=== PATIENT | female | born 1985 | race Caucasian/White ===

== ENCOUNTER 2020-10-15 08:17 | Emergency (ER) | payer SELFPAY ==
--- NOTE | 2020-10-15 08:21 | ED.GENADULT ---
HPI - General Adult General Chief complaint: Ear Stated complaint: Jaw/ear pain Time Seen by Provider: 10/15/20 08:20 History of Present Illness HPI narrative: 35-year-old woman presents with severe right ear pain. She states that she rarely sees physicians but does report that at 19 she had a ?panic attack induced heart attack. She states the severe right ear pain has been present intermittently for the last 2 years. She was last seen and evaluated by physicians over 6 months ago and says that she did see [facility] N[facility] Throat physicians she has been on multiple antibiotics and antiviral medications none of which have made a difference for her. She is currently using your cancelling as well as peroxide to rinse out her ear. She reports no fevers, cough, chills, abdominal pain. She does not have any specific headaches but notes over the last month she has been having visual changes all of which seem to be involving her right eye she describes this as being overall decreased acuity, decreased intensity of light and seems to have a mild right-sided peripheral field deficit. She has a dramatic affect of response and is hyperventilating due to the pain. 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 With this pain she does not describe other significant neurologic findings. She does not feel that there is any hearing loss, she is not experiencing tinnitus there has been no increased dizziness, vertigo, near syncopal episodes or numbness weekly weakness in extremities. She describes no TMJ type pain and no acute dental issues. Related Data Previous Rx's Medication Instructions Recorded carbamazepine 200 mg tablet 200 mg PO .HS #30 tab 10/15/20 Allergies Allergy/AdvReac Type Severity Reaction Status Date / Time Sulfa (Sulfonamide Allergy Verified 10/15/20 08:26 Antibiotics) Review of Systems Review of Systems Narrative: Remainder of complete review of systems is otherwise unremarkable except for that included in the HPI. Patient History Medical History (Updated 10/15/20 @ 12:06 by Merced Ontiveros MD) Myocardial infarct Renal insufficiency Social History Smoking Status: Current every day smoker Exam Narrative Exam Narrative: General: Disheveled, dramatic affect of behavior, difficulty in fully cooperating with exam due to pain behaviors HEENT: Moist mucous membranes, normal sclera with reactive pupils, left tympanic membrane and ear canal is unremarkable. Right the tympanic membrane has some mild opacification inferiorly but the canal itself looks normal. No bulging or redness to suggest infection Neck: No JVD, supple. There is a fullness just in front of the right mastoid and inferior to the TMJ. No pain or tenderness with full range of motion of the TMJ. No cervical adenopathy. No nuchal rigidity Respiratory: Lungs are clear to auscultation, no wheezing no rales no rhonchi. Full and symmetrical air movement Cardiac: Regular rate and rhythm no murmurs with careful auscultation, no bruits Abdomen: Soft, nontender, good bowel tones, no flank pain Skin: Warm and dry, no rashes and no facial skin or scalp abnormalities Neurologic: Reported decreased ?intensity? in vision and color sensation with the right eye only with decreased peripheral vision right eye only Extremities: No trauma, hyperemic hands consistent with prior IV drug use Psych: Cooperative, anxious, hurting Initial Vital Signs Initial Vital Signs: Vital Signs Temperature 97.9 F 10/15/20 08:27 Pulse Rate 117 H 10/15/20 08:27 Respiratory Rate 22 10/15/20 08:27 Blood Pressure 121/76 10/15/20 08:27 Pulse Oximetry 100 10/15/20 08:27 Course Orders Ordered: ED Orders 10/15/20 09:14 Complete Blood Count AUTO DIFF Stat Comprehensive Metabolic Panel Stat 10/15/20 09:21 MR head/brain wo/w con Stat 10/15/20 09:22 MR angio head wo con Stat Discontinued Medications Carbamazepine (Carbamazepine 200 Mg Tablet) 200 mg PO NOW ONE Stop: 10/15/20 08:54 Last Admin: 10/15/20 09:20 Dose: 200 mg Documented by: YAEL Diazepam (Diazepam 10 Mg/2 Ml Syringe) 5 mg IV NOW ONE Stop: 10/15/20 08:55 Last Admin: 10/15/20 09:19 Dose: 5 mg Documented by: YAEL Ketorolac Tromethamine (Ketorolac 30 Mg/Ml Vial) 15 mg IV NOW ONE Stop: 10/15/20 08:37 Last Admin: 10/15/20 09:18 Dose: 15 mg Documented by: YAEL Vital Signs Vital signs: Vital Signs - 8 hr 10/15/20 08:27 10/15/20 10:56 10/15/20 11:00 Temperature 97.9 F Pulse Rate 117 H 89 86 Respiratory Rate 22 14 Blood Pressure 121/76 102/55 L 106/61 Pulse Oximetry 100 100 100 10/15/20 11:30 Temperature Pulse Rate 77 Respiratory Rate Blood Pressure 95/52 L Pulse Oximetry 100 Medical Decision Making Medical Records Medical records narrative: 35-year-old woman presents with 2 years of intermittent severe stabbing right your pain. Presents today and extremities secondary to the pain and inability to sleep. It sounds like she has had some outpatient workup but has not had any imaging done. She has used ibuprofen Tylenol Naprosyn all with minimal effect. She does have history of IV drug use states her last heroin was well over a week ago and declines to answer regarding the methamphetamine use. Given the extensive time and description of her pain with the slight visual changes and the minor abnormality appreciated just anterior to the mastoid possibility of tumor, mass, infection are all entertained. Possibility of nervous intermedius neuralgia is also entertained. Labs, Toradol for pain control Valium for sedation and MRI of the brain with MRA of the brain are ordered at this time. Lab Data Result diagrams: 10/15/20 09:14 10/15/20 09:14 Labs: Lab Results 10/15/20 Range/Units 09:14 WBC 9.2 (4.5-11.0) X10^3/uL RBC 4.39 (4.0-5.2) X10^6/uL Hgb 13.7 (12.0-16.0) g/dL Hct 41.7 (36-46) % MCV 95.0 (80-100) fL MCH 31.2 (26-34) PG MCHC 32.9 (30-36) % RDW 14.8 (11.6-14.8) % Plt Count 402 H (150-400) X10^3/uL Neut % (Auto) 54.2 (50-75) % Lymph % (Auto) 33.8 (25-40) % Childress % (Auto) 7.2 (3-14) % Eos % (Auto) 3.9 (2-4) % Baso % (Auto) 0.9 (0-2) % Neut # (Auto) 5000 (2983-4378) /uL Lymph # (Auto) 3100 (8451-4162) /uL Childress # (Auto) 700 (0-900) /uL Eos # (Auto) 400 (0-450) /uL Baso # (Auto) 100 (0-100) /uL Imaging Data CT and MRA Brain: Radiologist's Impression: FINDINGS: Image quality: Excellent. CSF Spaces: Basal cisterns are patent. No extra-axial fluid collections. Ventricles are normal in size and shape. Brain: No midline shift. No intracranial bleeds or masses. No abnormal intracranial enhancement. The brainstem appears normal. Diffusion-weighted images demonstrate no acute ischemic insults. No chronic ischemic insults. Borderline tonsillar ectopia. Normal intravascular flow voids are present. Skull and face: Calvarial marrow is normal in signal. Orbits appear normal. Sinuses: Sinuses and mastoids appear clear. IMPRESSION: Borderline tonsillar ectopia. Otherwise normal MRI appearance of the brain with and without intravenous contrast. Dictated by: Inocente Terrazas M.D. on 10/15/2020 at 10:44 FINDINGS: Image quality: Excellent. Anterior circulation: Intracranial internal carotid arteries demonstrate normal size and intraluminal flow signal. The flow within the paired anterior cerebral arteries is normal and symmetric. The flow within the middle cerebral arteries is normal and symmetric. The anterior communicating artery is seen. No stenoses, occlusions, or aneurysms. Posterior circulation: Visualized portions of the vertebral arteries demonstrate normal caliber, and join to form a normal appearing basilar artery. The flow within the posterior cerebral arteries is normal and symmetric. No stenoses, occlusions, or aneurysms. IMPRESSION: Normal MRI and MRA appearance of the brain. Dictated by: Inocente Terrazas M.D. on 10/15/2020 at 10:30 [facility] Narrative Medical decision making narrative: Patient responded well to the IV Toradol and IV Valium. MR and MRI of the brain do not show any significant pathology. There are no tumors, no middle or inner ear abnormalities. No acoustic neuroma. No vascular abnormalities that could be causing any limited flow type pain. Labs are reassuring. At this point certainly possibility of migraine remains within the differential. Given her nice response to the carbamazepine (concurrent with Toradol and Valium) again the possibility of nervous intermedius neuralgia is entertained. At this time there is no reason for hospitalization. Reassurance is given. Will ask her to continue carbamazepine 200 mg daily for the next 30 days and see if this helps decrease her overall pain symptoms. Will ask her to follow-up with her primary care physician. At this time she is safe for home discharge. Discharge Plan Departure Patient Disposition: Home Clinical Impression: Ear pain, right Activity Restrictions/Additional Instructions: Thank you for coming in today Your lab work was reassuring. Your MRI of your brain and ear was also reassuring. There is no abscess, infection of any kind, tumors or masses, no abnormalities to the nerves going directly to your ear, the inner ear or the outer ear. There are no abnormal blood vessels to press on nerves to be causing pain. This also does not seem to be a problem with your jaw joint. This could still be migraine headache, but there are some other nerve type processes that might explain your pain better. One of these is called nervous intermedius neuralgia. After the workup we did today to prove that there are no life-threatening or other abnormalities this may well be the best diagnosis for you. One of the medicines we can use to treat this is called carbamazepine. I have given you a dose in the emergency department. I would like to continue this medication for a month to see if it makes a difference in this severe ear pain. I have given you some printed information on this rather rare diagnosis. I wish you the best Prescriptions: New carbamazepine 200 mg tablet 200 mg PO .HS Qty: 30 RF: 0
[2020-10-15 08:27] VITALS: BP 121/76; PULSE 117; RESP 22; TEMP 36.6; O2SAT 100; BMI 24.5
[2020-10-15] MEDS: KETOROLAC 30 MG/ML VIAL 15 MG IV (09:18)
[2020-10-15] MEDS: diazePAM 10 MG/2 ML SYRINGE 5 MG IV (09:19)
[2020-10-15] MEDS: carBAMazepine 200 MG TABLET PO (09:20)
--- NOTE | 2020-10-15 09:21 | DI.MRI.S_ITS ---
PROCEDURE: MR HEAD/BRAIN WO/W CON INDICATIONS: right otalgia, visual defect. ? abscess, tumor, vascular ab TECHNIQUE: Noncontrast axial T1 spin echo, axial T2 fast spin echo, sagittal and axial FLAIR, coronal T2 fast spin echo, axial gradient echo, axial diffusion and ADC through the brain. After the administration of contrast, axial and coronal 3D VIBE or T1 spin echo with fat saturation through the brain. COMPARISON: None. FINDINGS: Image quality: Excellent. CSF Spaces: Basal cisterns are patent. No extra-axial fluid collections. Ventricles are normal in size and shape. Brain: No midline shift. No intracranial bleeds or masses. No abnormal intracranial enhancement. The brainstem appears normal. Diffusion-weighted images demonstrate no acute ischemic insults. No chronic ischemic insults. Borderline tonsillar ectopia. Normal intravascular flow voids are present. Skull and face: Calvarial marrow is normal in signal. Orbits appear normal. Sinuses: Sinuses and mastoids appear clear. IMPRESSION: Borderline tonsillar ectopia. Otherwise normal MRI appearance of the brain with and without intravenous contrast. Dictated by: Inocente Terrazas M.D. on 10/15/2020 at 10:44 Approved by: Inocente Terrazas M.D. on 10/15/2020 at 10:48
--- NOTE | 2020-10-15 09:22 | DI.MRI.S_ITS ---
PROCEDURE: MR ANGIO HEAD WO CON INDICATIONS: right otalgia, visual defect. ? abscess, tumor, vascular ab TECHNIQUE: Noncontrast axial 3-D [id number] MR angiogram, with 3-dimensional maximum intensity projection (MIP) reformats of the internal carotid arteries and posterior circulation then performed. COMPARISON: None. FINDINGS: Image quality: Excellent. Anterior circulation: Intracranial internal carotid arteries demonstrate normal size and intraluminal flow signal. The flow within the paired anterior cerebral arteries is normal and symmetric. The flow within the middle cerebral arteries is normal and symmetric. The anterior communicating artery is seen. No stenoses, occlusions, or aneurysms. Posterior circulation: Visualized portions of the vertebral arteries demonstrate normal caliber, and join to form a normal appearing basilar artery. The flow within the posterior cerebral arteries is normal and symmetric. No stenoses, occlusions, or aneurysms. IMPRESSION: Normal MRI and MRA appearance of the brain. Dictated by: Inocente Terrazas M.D. on 10/15/2020 at 10:30 Approved by: Inocente Terrazas M.D. on 10/15/2020 at 10:41
[2020-10-15 09:24] LABS: Add Manual Diff / Slide Review NO; Basophils Absolute Auto 100 /uL (0-100); Basophils Percent Auto 0.9 % (0-2); Eosinophils Absolute Auto 400 /uL (0-450); Eosinophils Percent Auto 3.9 % (2-4); Hematocrit 41.7 % (36-46); Hemoglobin 13.7 g/dL (12.0-16.0); Lymphocytes Absolute Auto 3100 /uL (1100-4500); Lymphocytes Percent Auto 33.8 % (25-40); Mean Corpuscular HGB Conc 32.9 % (30-36); Mean Corpuscular Hemoglobin 31.2 PG (26-34); Monocytes Absolute Auto 700 /uL (0-900); Monocytes Percent Auto 7.2 % (3-14); Neutrophils Absolute Auto 5000 /uL (1500-7000); Neutrophils Percent Auto 54.2 % (50-75); Platelet Count 402 X10^3/uL (150-400); Red Blood Cell Count 4.39 X10^6/uL (4.0-5.2); Red Cell Distribution Width 14.8 % (11.6-14.8); White Blood Cell Count 9.2 X10^3/uL (4.5-11.0)
--- NOTE | 2020-10-15 09:36 | PC.NURSE ---
pt uncooperative upon exam. pt hysterical crying, shaking and unable to answer questions. pt declines pattern hanger with audioscope and visual acuity test at this time. Will suggest visual acuity test again after MRI. pt medicated per orders and transported to MRI.
[2020-10-15 10:56] VITALS: BP 102/55; PULSE 89; RESP 14; O2SAT 100; O2SAT 97
--- NOTE | 2020-10-15 10:58 | PC.NURSE ---
pt sleeping upon pain reassessment
[2020-10-15 11:00] VITALS: BP 106/61; PULSE 86; O2SAT 100
[2020-10-15 11:30] VITALS: BP 95/52; PULSE 77; O2SAT 100
[2020-10-15 12:00] VITALS: BP 95/52; PULSE 79; O2SAT 100
[2020-10-15 12:18] VITALS: BP 95/52; PULSE 79; RESP 16; TEMP 36.6; O2SAT 99
== END 2020-10-15 12:20 | disposition home or self-care (01) ==
PROVIDERS: Emergency Provider Emergency Medicine
DX: H92.01 Otalgia, right ear (principal); H53.9 Unspecified visual disturbance
CPT/HCPCS: 36415; 70544; 70553; 85025; 96374; 96375; 99284; J1885; J3360

== ENCOUNTER 2021-10-15 20:11 | Emergency (ER) | payer SELFPAY ==
[2021-10-15 20:23] VITALS: BP 133/60; PULSE 115; RESP 19; TEMP 36.9; O2SAT 100; BMI 24.5
== END 2021-10-15 21:45 | disposition left against medical advice (07) ==
PROVIDERS: Emergency Provider Emergency Medicine
CPT/HCPCS: 99281

== ENCOUNTER 2022-01-11 00:31 | Emergency (ER) | payer SELFPAY ==
[2022-01-11 00:35] VITALS: BP 117/71; PULSE 107; RESP 28; TEMP 36.6; O2SAT 99; BMI 35.2
[2022-01-11] MEDS: SODIUM CHLORIDE 0.9% 1,000 ML 1000 ML IV (00:51)
[2022-01-11] MEDS: methylPREDNISolone 125 MG/2 ML VIAL IV (00:51)
[2022-01-11] MEDS: ALBUTEROL/IPRATROPIUM 3 ML AMPUL INH (00:55)
--- NOTE | 2022-01-11 01:36 | ED_ITS ---
HPI - URI/Sore Throat General Chief Complaint: Upper Respiratory Symptoms Stated Complaint: TROUBLE BREATHING AND FEVER Time Seen by Provider: 01/11/22 00:38 Source: patient Mode of arrival: Ambulatory History of Present Illness HPI Narrative: 36-year-old female daily smoker with history of IV drug abuse, kidney disease and prior cardiac disease presents with a chief complaint of runny nose, sneezing, cough and increased wheeze over the past 24 hours or so. She states that she is had a subjective fever and chills. She denies any dizziness, weakness or lightheadedness. She has no chest pain. She denies nausea, vomiting, diarrhea or abdominal pain. She denies dysuria, frequency or urgency. Related Data Previous Rx's Medication Instructions Recorded carbamazepine 200 mg tablet 200 mg PO .HS #30 tabs 10/15/20 Allergies Allergy/AdvReac Type Severity Reaction Status Date / Time Sulfa (Sulfonamide Allergy Verified 10/15/21 20:29 Antibiotics) Review of Systems Review of Systems Narrative: GENERAL: See HPI HEENT: See HPI RESPIRATORY: See HPI CARDIOVASCULAR: Denies chest pain, palpitations, orthopnea, edema, GASTROINTESTINAL: Denies nausea, vomiting, abdominal pain, diarrhea, constipation, melena. : Denies dysuria, frequency, incontinence, hematuria, urinary retention. MUSCULOSKELETAL: denies weakness, joint pain, or bony pain SKIN: Denies rash, skin lesions, or other NEUROLOGIC: Denies weakness, headache, numbness, change in speech, confusion, seizures, incoordination. PSYCHIATRIC: No concerning psychosocial issues. 12 point review of systems is negative except for those stated above Patient History Medical History Myocardial infarct Renal insufficiency Social History Smoking Status: Current every day smoker Smoking Status: Current every day smoker alcohol intake frequency: a few times a week Substance Use Type: IV drugs and methamphetamine Exam Narrative Exam Narrative: GENERAL: [36] year old patient appears stated age. Well-developed patient, in mild distress. HEAD: Atraumatic. Normocephalic. EYES: Pupils equal round and reactive. Extraocular motions intact. No scleral icterus. No injection or drainage. ENT: Nose without bleeding, purulent drainage. Throat without erythema, ton sillar hypertrophy or exudate. Airway patent. NECK: Trachea midline. Non tender CARDIOVASCULAR: Tachycardic but regular rhythm without murmurs, gallops, or rubs. RESPIRATORY: Increased work of breathing with some faint, widespread, expiratory wheeze GASTROINTESTINAL: Abdomen soft, non-tender, nondistended. EXTREMITIES: No edema or joint tenderness. BACK: Nontender without deformity or crepitance. No flank tenderness. NEURO: AOx3. SKIN: No rash or erythema of visible areas Initial Vital Signs Initial Vital Signs: Vital Signs Temperature 97.9 F 01/11/22 00:35 Pulse Rate 107 H 01/11/22 00:35 Respiratory Rate 28 H 01/11/22 00:35 Blood Pressure 117/71 01/11/22 00:35 Pulse Oximetry 99 01/11/22 00:35 Oxygen Delivery Method 01/11/22 00:35 Course Orders Ordered: Discontinued Medications Albuterol (Albuterol 2.5 Mg/3 Ml Neb (Adult)) 2.5 mg INH NOW ONE Stop: 01/11/22 00:43 Albuterol/Ipratropium (Albuterol/Ipratropium 3 Ml Ampul) 3 ml INH NOW ONE Stop: 01/11/22 00:43 Last Admin: 01/11/22 00:55 Dose: 3 ml Documented By: ALLAN Sodium Chloride (Normal Saline 0.9%) 1,000 mls @ 1,000 mls/hr IV BOLUS ONE Stop: 01/11/22 01:41 Last Infusion: 01/11/22 03:54 Dose: 0 mls/hr Documented By: Admin: 01/11/22 00:51 Dose: 1,000 mls/hr Documented By: SERGIO Methylprednisolone (Methylprednisolone 125 Mg/2 Ml Vial) 125 mg IV NOW ONE Stop: 01/11/22 00:43 Last Admin: 01/11/22 00:51 Dose: 125 mg Documented By: SERGIO Vital Signs Vital signs: Vital Signs - 8 hr 01/11/22 00:35 Temperature 97.9 F Pulse Rate 107 H Respiratory Rate 28 H Blood Pressure 117/71 Pulse Oximetry 99 Oxygen Delivery Method Room Air MDM - URI/Sore Throat Lab Data Result diagrams: 01/11/22 01:51 01/11/22 01:51 Labs: Lab Results 01/11/22 01/11/22 01/11/22 Range/Units 00:37 01:39 01:51 WBC (4.5-11.0) X10^3/uL RBC (4.0-5.2) X10^6/uL Hgb (12.0-16.0) g/dL Hct (36-46) % MCV (80-100) fL MCH (26-34) PG MCHC (30-36) % RDW (11.6-14.8) % Plt Count (150-400) X10^3/uL Neut % (Auto) Lymph % (Auto) [place] % (Auto) Eos % (Auto) Baso % (Auto) Lymph # (Auto) [place] # (Auto) Baso # (Auto) Total Counted Seg Neutrophils % (38-70) % Band Neutrophils % (3-7) % Lymphocytes % (Manual) (25-45) % Monocytes % (Manual) (2-11) % Eosinophils % (Manual) (2-4) % Basophils % (Manual) (0-1) % Neutrophils # (Manual) (9908-3652) /uL RBC Morphology Anisocytosis D-Dimer 1190 H (<500) ng/ml Sodium (137-145) mmol/L Potassium (3.4-5.1) mmol/L Chloride (98-107) mmol/L Carbon Dioxide (22-32) mmol/L BUN (7-17) mg/dL Creatinine (0.52-1.04) mg/dL Estimated GFR (>60) mL/min BUN/Creatinine Ratio (6-22) Glucose (70-100) mg/dL Lactate (0.7-2.1) mmol/L Calcium (8.4-10.2) mg/dL Total Bilirubin (0.2-1.3) mg/dL AST (14-36) IU/L ALT (<35) IU/L Alkaline Phosphatase (38-126) U/L Total Creatine Kinase (30-135) U/L CK-MB (CK-2) CK-MB (CK-2) Rel Index Troponin I (0.01-0.034) ng/mL NT-Pro-B Natriuret Pep (<125) pg/mL Total Protein (6.3-8.2) g/dL Albumin (3.5-5.0) g/dL Globulin (1.7-4.1) g/dL Albumin/Globulin Ratio (1.0-2.8) Procalcitonin (<0.5) ng/mL Urine Test Negative (Negative) SARS-CoV-2 (PCR) Positive H (Negative) Influenza A (RT-PCR) Flu a negative (NEGATIVE) Influenza B (RT-PCR) Flu b negative (NEGATIVE) RSV (PCR) Negative (Negative) 01/11/22 01/11/22 01/11/22 Range/Units 01:51 01:51 01:51 WBC 3.5 L (4.5-11.0) X10^3/uL RBC 4.09 (4.0-5.2) X10^6/uL Hgb 12.8 (12.0-16.0) g/dL Hct 38.2 (36-46) % MCV 93.3 (80-100) fL MCH 31.2 (26-34) PG MCHC 33.4 (30-36) % RDW 14.6 (11.6-14.8) % Plt Count 160 (150-400) X10^3/uL Neut % (Auto) Not Reportable Lymph % (Auto) Not Reportable [place] % (Auto) Not Reportable Eos % (Auto) Not Reportable Baso % (Auto) Not Reportable Lymph # (Auto) Not Reportable [place] # (Auto) Not Reportable Baso # (Auto) Not Reportable Total Counted 100 Seg Neutrophils % 48.0 (38-70) % Band Neutrophils % 9.0 H (3-7) % Lymphocytes % (Manual) 37.0 (25-45) % Monocytes % (Manual) 4.0 (2-11) % Eosinophils % (Manual) 1.0 L (2-4) % Basophils % (Manual) 1.0 (0-1) % Neutrophils # (Manual) 1995 L (9223-9572) /uL RBC Morphology See below Anisocytosis 1+ H D-Dimer (<500) ng/ml Sodium (137-145) mmol/L Potassium (3.4-5.1) mmol/L Chloride (98-107) mmol/L Carbon Dioxide (22-32) mmol/L BUN (7-17) mg/dL Creatinine (0.52-1.04) mg/dL Estimated GFR (>60) mL/min BUN/Creatinine Ratio (6-22) Glucose (70-100) mg/dL Lactate 1.3 (0.7-2.1) mmol/L Calcium (8.4-10.2) mg/dL Total Bilirubin (0.2-1.3) mg/dL AST (14-36) IU/L ALT (<35) IU/L Alkaline Phosphatase (38-126) U/L Total Creatine Kinase (30-135) U/L CK-MB (CK-2) CK-MB (CK-2) Rel Index Troponin I (0.01-0.034) ng/mL NT-Pro-B Natriuret Pep 25 (<125) pg/mL Total Protein (6.3-8.2) g/dL Albumin (3.5-5.0) g/dL Globulin (1.7-4.1) g/dL Albumin/Globulin Ratio (1.0-2.8) Procalcitonin 0.06 (<0.5) ng/mL Urine Test (Negative) SARS-CoV-2 (PCR) (Negative) Influenza A (RT-PCR) (NEGATIVE) Influenza B (RT-PCR) (NEGATIVE) RSV (PCR) (Negative) 01/11/22 Range/Units 01:51 WBC (4.5-11.0) X10^3/uL RBC (4.0-5.2) X10^6/uL Hgb (12.0-16.0) g/dL Hct (36-46) % MCV (80-100) fL MCH (26-34) PG MCHC (30-36) % RDW (11.6-14.8) % Plt Count (150-400) X10^3/uL Neut % (Auto) Lymph % (Auto) [place] % (Auto) Eos % (Auto) Baso % (Auto) Lymph # (Auto) [place] # (Auto) Baso # (Auto) Total Counted Seg Neutrophils % (38-70) % Band Neutrophils % (3-7) % Lymphocytes % (Manual) (25-45) % Monocytes % (Manual) (2-11) % Eosinophils % (Manual) (2-4) % Basophils % (Manual) (0-1) % Neutrophils # (Manual) (7731-9180) /uL RBC Morphology Anisocytosis D-Dimer (<500) ng/ml Sodium 138 (137-145) mmol/L Potassium 3.6 (3.4-5.1) mmol/L Chloride 107 (98-107) mmol/L Carbon Dioxide 22 (22-32) mmol/L BUN 15 (7-17) mg/dL Creatinine 0.58 (0.52-1.04) mg/dL Estimated GFR > 60 (>60) mL/min BUN/Creatinine Ratio 25.9 H (6-22) Glucose 112 H (70-100) mg/dL Lactate (0.7-2.1) mmol/L Calcium 7.4 L (8.4-10.2) mg/dL Total Bilirubin 0.3 (0.2-1.3) mg/dL AST 25 (14-36) IU/L ALT 16 (<35) IU/L Alkaline Phosphatase 56 (38-126) U/L Total Creatine Kinase 39 (30-135) U/L CK-MB (CK-2) TNP CK-MB (CK-2) Rel Index TNP Troponin I < 0.012 (0.01-0.034) ng/mL NT-Pro-B Natriuret Pep (<125) pg/mL Total Protein 6.2 L (6.3-8.2) g/dL Albumin 3.4 L (3.5-5.0) g/dL Globulin 2.8 (1.7-4.1) g/dL Albumin/Globulin Ratio 1.2 (1.0-2.8) Procalcitonin (<0.5) ng/mL Urine Test (Negative) SARS-CoV-2 (PCR) (Negative) Influenza A (RT-PCR) (NEGATIVE) Influenza B (RT-PCR) (NEGATIVE) RSV (PCR) (Negative) [facility] Narrative Medical decision making narrative: Patient with reassuring history and physical exam. Initially a bit tachycardic but improved significantly with above-stated therapies. Labs are reassuring and swab demonstrates COVID. Over the course of the visit work of breathing greatly improves, there is no need for supplemental oxygen. CT angiogram performed given tachycardia, tachypnea and elevated D-dimer but thankfully resulted without any significant findings. The workup was nearly complete when patient had to leave for unknown reasons. She understood the risk of leaving to include permanent disability and even without making specific diagnoses and was willing to assume this risk. She understands she may return at any point without fear of percussion Discharge Plan Departure Patient Disposition: Left Against Medical Advice Clinical Impression: COVID-19 Activity Restrictions/Additional Instructions: *You have been diagnosed with [ COVID-19] *What to do: ?* per recommendations from the CDC and the [facility] Department of Health ?* stay home except to get medical care. ?Restrict activities outside your home, except for getting medical care. ?Do not go to work, school, or public areas. ?Avoid using public transportation, ride sharing, or taxis. ?* separate yourself from other people in your home. ?* call ahead before visiting your doctor ?* Wear a facemask ?* Cover your coughs and sneezes ?* Clean your hands often ?* Avoid sharing household items ?* Clean all high-touch services every day ?* Monitor your symptoms and seek prompt medical attention if your illness is worsening, particularly with difficulty in breathing. You may discontinue your isolation when: ?1. You have been fever-free for at least 24 hours without the use of fever reducing medication, AND ?2. Your symptoms are getting better, AND ?3. At least 5 days have passed since symptoms first appeared ?4. If you have fever, continue to stay home until fever resolves Individuals with laboratory confirmed COVID-19 who have not had any symptoms may discontinue home isolation when at least 5 days have passed since the date of their first COVID-19 diagnostic test and have had no subsequent illness You should notifiy any friends and family that have been in close contact *If up to date on COVID Vaccines, then they do not need to quarantine unless symptoms develop. Get tested on day 5 (or sooner if symptoms develop). Take precautions and watch for symptoms until day 10 *If NOT up to date on COVID Vaccines, then CDC recommends quarantine for at least 5 full days. Wear a well fitted mask at home if you must be around others. If they ?develop symptoms they should get tested. If they remain asymptomatic they should get tested on day 5. They should take precautions and monitor for symptoms until day 10. Prescriptions: No Action carbamazepine 200 mg tablet 200 mg PO .HS Qty: 30 0RF Stand Alone Forms: Against Medical Advice
--- NOTE | 2022-01-11 01:37 | DI.RAD.S_ITS ---
PROCEDURE: XR CHEST 2V INDICATIONS: cough, fever, short of breath TECHNIQUE: 2 views of the chest were acquired. COMPARISON: [facility], CT, CT ANGIO CHEST PE PROTOCOL, 01/11/2022, 2:40. FINDINGS: Surgical changes and devices: None. Lungs and pleura: Lungs are clear. No pleural effusions or pneumothorax. Mediastinum: Mediastinal contours are normal. Heart size is normal. Bones and chest wall: No suspicious bony abnormalities. Soft tissues appear unremarkable. IMPRESSION: No focal infiltrates are seen. Note: No significant discrepancy from the preliminary report. Dictated by: Joseph Knutson M.D. on 01/11/2022 at 7:58 Approved by: Joseph Knutson M.D. on 01/11/2022 at 8:00
[2022-01-11 02:08] LABS: D Dimer 1190 ng/ml (<500)
[2022-01-11 02:11] LABS: Lactate (Lactic Acid) 1.3 mmol/L (0.7-2.1)
[2022-01-11 02:12] LABS: Alanine Aminotransferase 16 IU/L (<35); Albumin 3.4 g/dL (3.5-5.0); Albumin Globulin Ratio 1.2 (1.0-2.8); Alkaline Phosphatase 56 U/L (38-126); Aspartate Aminotransferase 25 IU/L (14-36); BUN Creatinine Ratio 25.9 (6-22); Bilirubin Total 0.3 mg/dL (0.2-1.3); Blood Urea Nitrogen 15 mg/dL (7-17); Calcium 7.4 mg/dL (8.4-10.2); Carbon Dioxide 22 mmol/L (22-32); Chloride 107 mmol/L (98-107); Creatine Kinase 39 U/L (30-135); Estimated Glomerular Filt Rate > 60 mL/min (>60); Globulin 2.8 g/dL (1.7-4.1); Glucose 112 mg/dL (70-100); Potassium 3.6 mmol/L (3.4-5.1); Sodium 138 mmol/L (137-145); Total Protein 6.2 g/dL (6.3-8.2)
[2022-01-11 02:14] LABS: HEMOLYSIS 57 (0-50)
[2022-01-11 02:17] LABS: Hematocrit 38.2 % (36-46); Hemoglobin 12.8 g/dL (12.0-16.0); Mean Corpuscular HGB Conc 33.4 % (30-36); Mean Corpuscular Hemoglobin 31.2 PG (26-34); Mean Corpuscular Volume 93.3 fL (80-100); Platelet Count 160 X10^3/uL (150-400); Red Blood Cell Count 4.09 X10^6/uL (4.0-5.2); Red Cell Distribution Width 14.6 % (11.6-14.8); White Blood Cell Count 3.5 X10^3/uL (4.5-11.0)
[2022-01-11 02:18] LABS: Add Manual Diff / Slide Review YES
--- NOTE | 2022-01-11 02:22 | DI.CT.S_ITS ---
PROCEDURE: CT ANGIO CHEST PE PROTOCOL INDICATIONS: Short of breath, tachycardia, critical Dimer TECHNIQUE: After the administration of intravenous contrast, 2 mm thick sections acquired from the pulmonary apices to the posterior costophrenic angles. 3-dimensional maximum intensity projection (MIP) coronal and sagittal reformats were then acquired through the thorax. For radiation dose reduction, the following was used: automated exposure control, adjustment of mA and/or kV according to patient size. COMPARISON: [facility], CR, XR CHEST 2V, 01/11/2022, 1:37. FINDINGS: Image quality: Excellent. Pulmonary arteries: Pulmonary arteries are normal in size, and demonstrate no intraluminal filling defects to suggest central pulmonary embolism. Lungs and pleura: Lungs are clear. No pleural effusions or pneumothorax. Central and peripheral airways are patent. Mediastinum: Heart size is normal, without pericardial effusion. No mediastinal or hilar adenopathy. Thoracic aorta is normal in caliber and enhancement. Esophagus is normal in caliber, without hiatal hernia. Bones and chest wall: No suspicious bony lesions. Ribs and thoracic spine appear intact throughout. Thyroid gland demonstrates no significant abnormality. No axillary or supraclavicular adenopathy. Abdomen: Visualized upper abdominal solid organs appear normal in the early arterial phase of enhancement. IMPRESSION: Negative for pulmonary embolism. Clear lungs, without focal infiltrates. Note: No significant discrepancy from the preliminary report. Dictated by: Joseph Knutson M.D. on 01/11/2022 at 8:00 Approved by: Joseph Knutson M.D. on 01/11/2022 at 8:01
[2022-01-11 02:23] LABS: Influenza A - CEPHEID Flu A NEGATIVE (NEGATIVE); Influenza B - CEPHEID Flu B NEGATIVE (NEGATIVE); Respiratory Syncytial Virus Negative (Negative)
[2022-01-11 02:24] LABS: COVID-19 CEPHEID 4-PLEX PCR POSITIVE (Negative)
[2022-01-11 02:35] LABS: Pregnancy Test Urine Negative (Negative)
[2022-01-11 03:00] LABS: NT-proBNP (BNP-Adult 18+) 25 pg/mL (<125)
[2022-01-11 03:03] LABS: Troponin I < 0.012 ng/mL (0.01-0.034)
[2022-01-11 03:07] LABS: Procalcitonin 0.06 ng/mL (<0.5)
[2022-01-11 03:37] LABS: Neutrophils Absolute Manual 1995 /uL (3000-5900); Total Cells Counted 100
[2022-01-11 03:38] LABS: Anisocytosis 1+
== END 2022-01-11 04:04 | disposition left against medical advice (07) ==
PROVIDERS: Emergency Provider Emergency Medicine
DX: U07.1 COVID-19 (principal); R00.0 Tachycardia, unspecified
CPT/HCPCS: 0241U; 71046; 71275; 80053; 81025; 82550; 83605; 83880; 84145; 84484; 85007; 85025; 85379; 87040; 93005; 94640; 96361; 96374; 99284; J2930; Q9967

== ENCOUNTER 2023-02-13 22:34 | Emergency (ER) | payer SELFPAY ==
[2023-02-13 22:36] VITALS: BP 122/67; PULSE 121; RESP 18; TEMP 36.4; O2SAT 98; BMI 26.4
[2023-02-13 22:46] VITALS: PULSE 140; O2SAT 97
[2023-02-13 22:47] VITALS: BP 124/80; PULSE 138; O2SAT 98
--- NOTE | 2023-02-13 22:49 | DI.RAD.S_ITS ---
PROCEDURE: XR KNEE RT 3V INDICATIONS: eval for fracture TECHNIQUE: 3 views of the knee were acquired. COMPARISON: None. FINDINGS: Bones: No fractures or dislocations. No suspicious bony lesions. Soft tissues: No joint effusion. No suspicious soft tissue calcifications. IMPRESSION: No acute bony abnormality or significant effusion. Dictated by: Candi Clifford M.D. on 02/14/2023 at 0:13 Approved by: Candi Clifford M.D. on 02/14/2023 at 0:13
[2023-02-13 23:00] VITALS: BP 120/63; PULSE 112; O2SAT 100
[2023-02-13 23:30] VITALS: BP 127/70; PULSE 116; O2SAT 100
[2023-02-14] VITALS: BP 88/48; PULSE 83; O2SAT 95
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
[2023-02-14 00:33] VITALS: O2SAT 99
[2023-02-14 00:34] VITALS: BP 134/71; PULSE 102; O2SAT 100
== END 2023-02-14 00:46 | disposition home or self-care (01) ==
PROVIDERS: Emergency Provider Emergency Medicine
DX: S80.01XA Contusion of right knee, initial encounter (principal); W22.8XXA Striking against or struck by other objects, initial encounter
CPT/HCPCS: 73562; 99283

== ENCOUNTER 2024-04-27 22:49 | Emergency (ER) | payer SELFPAY ==
[2024-04-27 22:59] VITALS: BP 141/77; PULSE 111; RESP 16; TEMP 37.2; O2SAT 98; BMI 28.3
--- NOTE | 2024-04-28 00:10 | ED.SKABFB ---
HPI - Skin/Abscess/Foreign Bdy General Chief complaint: Skin/Abscess/Foreign Body Stated complaint: Painful irritation on LT arm only Time Seen by Provider: 04/27/24 23:19 Source: patient Mode of arrival: Ambulatory Limitations: no limitations History of Present Illness HPI narrative: 38-year-old female history of substance abuse who presents with complaint of red spots on her left arm only. Patient has a about 6 or 7 red pimple like lesions on her left forearm and notes a lump in her axilla. Patient states she has had MRSA in the past. She has used injection drugs in the past but states not recently and never in her left arm. She states she felt hot and feverish yesterday subjectively. Denies any chest pain or shortness of breath. No nausea or vomiting. No other GI or urinary symptoms. No rash or skin changes elsewhere. Patient has been picking at her skin. She states she was an allergy to sulfa. States no daily medications at this time. Does use tobacco, occasional alcohol, history of IV drugs and methamphetamine use. Related Data Previous Rx's Medication Instructions Recorded carbamazepine 200 mg tablet 200 mg PO .HS #30 tabs 10/15/20 doxycycline hyclate 100 mg tablet 100 mg PO BID 10 days #20 tabs 04/28/24 Allergies Allergy/AdvReac Type Severity Reaction Status Date / Time Sulfa (Sulfonamide Allergy Verified 10/15/21 20:29 Antibiotics) Review of Systems Review of Systems ROS Unobtainable: All systems reviewed & are unremarkable except as noted in HPI and below Patient History Medical History Renal insufficiency Myocardial infarct Social History Smoking Status: Current every day smoker Smoking Status: Current every day smoker tobacco type: cigarettes alcohol intake frequency: 0-2 drinks per day Exam Narrative Exam Narrative: GENERAL: Alert and oriented x three, female in mild distress HEENT: Head normocephalic, atraumatic, EOMI, pupils reactive, face symmetric, moist mucous membranes NECK: Supple, full range of motion CARDIOVASCULAR: Regular rate and rhythm without murmurs, rubs or gallops. RESPIRATORY: Breath sounds equal bilaterally, no wheezes rales or rhonchi. ABDOMEN: Soft, nontender. Normoactive bowel sounds all 4 quadrants. No guarding or rebound, rigidity, no mass : No CVA tenderness EXTREMITIES: Normal range of motion, no clubbing or edema. Neurovascularly intact. Patient has 6 or 7 total 0.5 cm raised circular lesions spaced several centimeters apart with a scab on the inner left forearm where patient appears to have excoriated them, no vesicles or blisters noted. There was no drainage currently. There was no fluctuance. Patient does not have any erythema tracking up her arm. Patient has a what feels like a single lymph node less than a cm nontender non fluctuant in her left axilla there was no erythema or skin changes. NEUROLOGICAL: Cranial nerves II through XII grossly intact. Moving all extremities SKIN: Warm, dry, no petechiae, no rashes or lesions otherwise noted. Initial Vital Signs Initial Vital Signs: Vital Signs Temperature 98.9 F 04/27/24 22:59 Pulse Rate 111 H 04/27/24 22:59 Respiratory Rate 16 04/27/24 22:59 Blood Pressure 141/77 H 04/27/24 22:59 Pulse Oximetry 98 04/27/24 22:59 Oxygen Delivery Method Room Air 04/27/24 22:59 Course Orders Ordered: Discontinued Medications Doxycycline Hyclate (Doxycycline Hyclate 100 Mg Tablet) 100 mg PO NOW ONE Stop: 04/28/24 00:19 Last Admin: 04/28/24 00:26 Dose: 100 mg Documented By: DEYSI Vital Signs Vital signs: Vital Signs - 8 hr 04/27/24 22:59 Temperature 98.9 F Pulse Rate 111 H Respiratory Rate 16 Blood Pressure 141/77 H Pulse Oximetry 98 Oxygen Delivery Method Room Air MDM - Skin/Abscess/Foreign Bdy MDM Narrative Medical decision making narrative: 38-year-old female appears to have several pimple like lesions on her left forearm does have a history of MRSA does not appear to be a shingles crosses dermatomes. We will cover patient with oral antibiotic they are quite small no active drainage or fluctuance encouraged patient to use warm compresses to the area. Patient does not have any drainage to culture. She was nontoxic does not appear septic or requiring further workup at this time but discussed return precautions. Discharge Plan Departure Patient Disposition: Home Clinical Impression: Rash, skin Activity Restrictions/Additional Instructions: Suspect your developing infection in your skin. Take oral antibiotics until completed. A prescription was sent to [facility] and [place]. Wound Care: Keep wound(s) clean and dry. Wash twice daily with soap and water only. Use warm compresses 4 times daily to the affected area. Do not use over the counter products (alcohol or peroxide)on the wounds unless instructed by a physician, you can use a topical antibiotic or triple antibiotic ointment to the affected area. If wound condition worsens (increased/expanding redness, developing fluid blisters, or worsening pain), either contact your doctor for an urgent re-assessment , or return to the Emergency Department. Return if fever greater than 100.4 Fahrenheit, increased swelling, increasing pain or worsening symptoms such as increased discharge or spreading redness. Prescriptions: New doxycycline hyclate 100 mg tablet 100 mg PO BID 10 Days Qty: 20 0RF No Action carbamazepine 200 mg tablet 200 mg PO .HS Qty: 30 0RF Stand Alone Forms: Patient Portal/API/Survey
[2024-04-28] MEDS: DOXYCYCLINE HYCLATE 100 MG TABLET PO (00:26)
== END 2024-04-28 00:32 | disposition home or self-care (01) ==
PROVIDERS: Emergency Provider Emergency Medicine
DX: R21 Rash and other nonspecific skin eruption (principal); Z86.14 Personal history of Methicillin resistant Staphylococcus aureus infection
CPT/HCPCS: 99283